=== PATIENT | female | born 1980 | race Caucasian/White ===

== ENCOUNTER → 2019-11-19 15:35 | Outpatient (BNVA) | payer SELFPAY | PROVIDERS: Family Provider Nurse Practitioner Family; Visit Provider Obstetrics & Gynecology | DX: N93.9 Abnormal uterine and vaginal bleeding, unspecified (principal) | CPT/HCPCS: 83001; 84146; 84443; 84702; 85025 ==

== ENCOUNTER → 2019-11-26 11:04 | Outpatient (BNVA) | payer SELFPAY | PROVIDERS: Family Provider Nurse Practitioner Family; Visit Provider Obstetrics & Gynecology | DX: D25.9 Leiomyoma of uterus, unspecified (principal) | CPT/HCPCS: 76830 ==

== ENCOUNTER → 2020-03-06 10:44 | Outpatient (BNVA) | payer OTHER, SELFPAY | PROVIDERS: PCP Nurse Practitioner Family; Visit Provider Obstetrics & Gynecology | DX: Z01.812 Encounter for preprocedural laboratory examination (principal); D25.1 Intramural leiomyoma of uterus; G89.29 Other chronic pain; N93.9 Abnormal uterine and vaginal bleeding, unspecified; R10.2 Pelvic and perineal pain | CPT/HCPCS: 80053; 81001; 84703; 85025; 87635 ==

== ENCOUNTER 2020-03-11 16:55 | Observation (INO) | payer OTHER, SELFPAY ==
[2020-03-06 09:46] VITALS: BMI 20.9
--- NOTE | 2020-03-06 13:18 | ANES.PREANE2 ---
Pre-Anesthetic Assessment Pre-Anesthetic Assessment: Height/Weight: Height 1.6 m Weight 53.524 kg Preop Diagnosis: Chronic pelvic pain, abnormal uterine bleeding, uterine fibroid Proposed Procedure: Operation Date: 03/11/20 08:25 Proposed Procedures p Total Vaginal Hysterectomy 15082 N93.9 R10.2(Not Applicable) - Shaka Betts MD Was Beta Sunny taken within 24 hours: N/A Social: Social History: Tobacco and No alcohol Exam: Pre-Anes Outpt Exam: alert, oriented x 3, clear to auscultation bilaterally and regular rate & rhythm Airway: Submandibular: WNL Cervical ROM: WNL MP: 2 Dentition: Partials History/ROS: No significant history except as noted Anesthetic Plan: ASA status: 2 Anesthesia: General Risk of > 500 ml blood loss (7ml/kg in children): No PFSH Anesthesia PFSH: Family History Other CAD (coronary artery disease) Denies family history of Colon cancer Ovarian cancer Diabetes Clotting disorder Hyperlipidemia Breast cancer Anesthesia complication Hypertension Uterine cancer Thyroid condition Stroke Social History (Updated 03/06/20 @ 07:54 by Melany Perry RN) Smoking and tobacco status: current every day smoker cigarettes Packs smoked per day: 1 Alcohol intake: current Alcohol intake frequency: holidays/special occasions only Alcohol type: beer Data Anesthesia Cardiac Studies: No Data to Display
[2020-03-11] VITALS (15 sets, daily range): BP systolic 92–123; BP diastolic 57–86; PULSE 71–108; RESP 14–20; TEMP 36.3–37.1; O2SAT 96–100
[2020-03-11] MEDS: sodium chloride 0.9% 500 ML IV (11:46)
[2020-03-11] MEDS: scopolamine 1.5 Patch 1 PATCH TRANSDERMA (11:46)
[2020-03-11] MEDS: sodium chloride 0.9% 1,000 ML 30 ML IV (11:47)
[2020-03-11 11:53] LABS: OR HCG Qualitative Urine Negative (Negative)
--- NOTE | 2020-03-11 11:58 | P.ANESUD_ITS ---
Pre-Anesthetic Update Pre-Anesthetic Assessment: Date of Surgery/Procedure: 03/11/20 Preop Nichelle gnosis: Chronic pelvic pain, abnormal uterine bleeding, uterine fibroid Proposed Procedure: Operation Date: 03/11/20 12:55 Proposed Procedures p Total Vaginal Hysterectomy 43164 N93.9 R10.2(Not Applicable) - Shaka Betts MD Any changes to Pre-Anesthetic Assessment?: No Last Intake: Intake Last Liquid Date 03/10/20 Last Liquid Time 23:00 Last Solid Date 03/10/20 Last Solid Time 13:30 Labs Last 48hrs: Laboratory Results - last 48 hr 03/11/20 11:52 Urine HCG, Qual Negative Vitals: Temperature 97.3 F L 03/11/20 11:43 Temperature Source Temporal Artery S can 03/11/20 11:43 Pulse Rate 97 03/11/20 11:43 Respiratory Rate 18 03/11/20 11:43 Blood Pressure 102/86 03/11/20 11:43 Blood Pressure Zonia n 91 03/11/20 11:43 Pulse Oximetry 100 03/11/20 11:43 Oxygen Delivery Me thod 03/11/20 11:43 Exam: Pre-Anes Outpt Exam: alert, oriented x 3, clear to auscultation bilaterally and regular rate & rhythm Cardiac Studies: No Data to Display
--- NOTE | 2020-03-11 14:42 | W.PM.OPSUD ---
Surgery/Procedure H&P Update DATE OF PROCEDURE: March 11, 2020 DATE H&P PERFORMED: 03/06/20 H&P UPDATE INFORMATION: I have reviewed H&P completed within last 30 days, I have examined patient prior to procedure and No changes to prior documentation PREOP DIAGNOSIS: Chronic pelvic pain, abnormal uterine bleeding, uterine fibroid PLANNED PROCEDURE: Operation Date: 03/11/20 12:55 Proposed Procedures p Total Vaginal Hysterectomy 32327 N93.9 R10.2(Not Applicable) - Shaka Betts MD
[2020-03-11] MEDS: ceFOXitin 2,000 MG in sodium chloride 0.9% (plus) 50 ML 100 MG IV (15:52)
--- NOTE | 2020-03-11 17:40 | PM.OP ---
Operative Report Date of procedure: March 11, 2020 Pre-op Diagnosis: Chronic pelvic pain, abnormal uterine bleeding, uterine fibroid Post-op diagnosis: same Procedure Done: Total vaginal hysterectomy Specimens removed/disposition: Uterus Pathology: Uterus Surgeon: Shaka Betts MD Anesthesia: General Estimated blood loss (mL): 25 IV fluids (mL): 1,000 Urine output (mL): 100 Condition: stable Disposition: PACU Brief History: 39-year-old female G3, P3 with a uterus fibroid abnormal uterine bleeding and chronic pelvic pain unresponsive to medical manage. Procedure: After informed consent and risks, benefits, indications and alternatives reviewed with the patient was taken to the operating room. The patient was placed in dorsal lithotomy position prepped, and draped in the usual sterile fashion. The pre-procedure timeout verifying the correct patient, procedure, site and side, could not requirements was performed and acknowledge by the OR team. A Moon catheter was placed. A Bookwalter vaginal retractor was placed into the vagina in usual manner visualize the cervix. Cervix was grasped with a single tooth tenaculum and circumferentially infiltrated with 1% Xylocaine with epinephrine. Then cervix was circumferentially incised with bovie and the bladder was dissected off the pubovesical cervical fascia anteriorly with a sponge stick and Metzenbaum scissors. The anterior peritoneal reflection was identified and the anterior cul-de-sac was entered sharply with Metzenbaum scissors. The same procedure was performed posteriorly and a posterior colpotomy was made through the posterior cul-de-sac space without difficulty and the posterior blade of the Bookwalter vaginal retractor was advanced posteriorly into the cul-de-sac. At this time, the left and right uterosacral ligaments were isolated and ligated with 0 Vicryl. The Enseal device was placed over the uterosacral ligaments on either side and was then used in a serial fashion up through the cardinal ligaments bilaterally cross-clamped, cut, and sealed with the Enseal device. Finally, the uterine arteries were cross-clamped, cut, sealed and ligated with the Enseal device. Hemostasis was assured. The broad ligaments were then serially clamped, sealed and cut with the Enseal device on both sides. Excellent hemostasis was visualized. Both cornua were clamped, sealed and cut with the Enseal device. Then the pedicles were then suture ligated with excellent hemostasis. The uterus was excised and submitted for pathologic evaluation. No other abnormalities were noted in the pelvic cavity. The peritoneum was then closed in a pursestring fashion with 0 Vicryl suture. The vaginal cuff angles were closed with [id number] #0 Vicryl suture on both sides and transfixed with the ipsilateral cardinal and uterosacral ligaments. The patient was given indigo carmine IV. The remainder of the vaginal cuff was closed with #0 Vicryl in a running locked fashion. At this time, instruments were removed from the vagina at hemostasis assured. Then the Moon catheter was removed and cystoscope was inserted. The bladder was filled with sterile water. Complete evaluation of the bladder mucosa was performed noting no lacerations, dimpling, tears, bleeding of the mucosa or muscular layers. Both ureteral orifices were identified. Prompt excretion of blue urine from both ureteral orifices was noted. Cystoscope was withdrawn. Moon catheter was then placed yielding clear blue urine. A vaginal packing with Premarin cream was placed and the patient was taken out of dorsal lithotomy position and awakened from the general anesthesia. The patient tolerated the procedure well and was taken to the PACU recovery room in a stable condition. Sponge, lap, needle and instruments counts were correct x3.
[2020-03-11] MEDS: fentaNYL 50 mcg/mL INJ 2mL IVP ×2 (17:43→17:55)
[2020-03-11] MEDS: ketorolac 30 mg/mL INJ IVP (18:26)
[2020-03-11] MEDS: HYDROmorphone 1 mg/mL INJ 1 mL 1.5 MG IVP (18:27)
[2020-03-11] MEDS: dextrose 5%-lactated ringers 1,000 ML 125 ML IV (20:35)
[2020-03-12] MEDS: ketorolac 30 mg/mL INJ IVP
[2020-03-12 01:33] VITALS: BP 103/66; PULSE 76; RESP 16; O2SAT 99
[2020-03-12 03:06] VITALS: RESP 12
[2020-03-12] MEDS: HYDROmorphone 1 mg/mL INJ 1 mL 1.5 MG IVP ×2 (03:06→10:00)
[2020-03-12 05:24] LABS: Hematocrit 28.1 % (37.0-47.0); Hemoglobin 8.7 g/dL (11.5-15.3); Mean Corpuscular Hemoglobin 26.4 pg (28.0-34.0); Mean Corpuscular Volume 85.4 fL (81-99); Mean Platelet Volume 9.5 fL (7.4-10.4); Platelet Count 344 10^3/cmm (130-400); Red Blood Count 3.29 10^6/uL (4.1-5.3); Red Cell Distribution Width 13.5 % (12.1-15.1); White Blood Count 15.7 10^3/uL (4.0-10.0)
[2020-03-12] MEDS: HYDROcodone-acetaminophen 5-325 mg Tablet PO ×2 (07:48→14:05)
[2020-03-12] MEDS: ibuprofen 800 mg tablet PO ×2 (07:48→16:21)
[2020-03-12] MEDS: docusate sodium 100 mg Capsule PO (09:03)
[2020-03-12 10:00] VITALS: RESP 18; O2SAT 98
[2020-03-12 10:15] VITALS: BP 90/50; PULSE 90; RESP 18; TEMP 36.6; O2SAT 95
--- NOTE | 2020-03-12 17:08 | PM.OBGYDC ---
Discharge Providers GRIZZLYMAN Date of Admission: 03/11/20 16:55 Date of Discharge: 03/12/20 Attending Provider at Admission: Shaka Betts MD Attending Provider at Discharge: Shaka Betts MD Primary Care Provider: Fran Pete Diagnoses at Discharge Discharge Diagnosis (1) Uterine leiomyoma: Status: Acute Qualifiers: Uterine leiomyoma location: intramural Qualified Code(s): D25.1 - Intramural leiomyoma of uterus (2) Abnormal uterine bleeding due to intramural leiomyoma: Status: Acute (3) Chronic pelvic pain in female: Status: Acute Reason for Visit Reason for Visit: abnormal uterine bleeding Hospital Course Hospital Course Mrs. Sahu 39-year-old female with abnormal uterine bleeding, pelvic pain and fibroid uterus unresponsive to medical management, admitted for planned total vaginal hysterectomy. The procedure was performed without complication. Overnight observation uneventful. Ambulating without difficulty. Tolerating diet well. Pain under control with medication. She is afebrile and hemodynamically stable. Physical Exam Narrative: EXAM NARRATIVE: GA: Alert and oriented ?3. HEENT: WNL. Heart: Regular rate and rhythm. Lungs: Clear to auscultation bilaterally. Abdomen: Bowel sounds present, nontender, minimal tenderness. SURGICAL ASSIST: light bleeding. Extremities: No edema, no cyanosis, no calves pain. Urinary Catheter Management^: F: Cath Placed During This Visit: yes, but has since been removed by the nurse Reason for Continuing Indwelling Catheter: Decision to DC Catheter Urinary Catheter Date of Insertion: 03/11/20 Urinary Catheter Time of Insertion: 16:00 Date Urinary Catheter Removed: 03/12/20 Time Urinary Catheter Discontinued: 11:35 Discharge Data Data Completed and Pending: Pending at discharge Category Date Time Status Pathology: Surgic al [PTH] Routine Pth 03/11/20 17:14 Received Labs from last 24 hours 03/12/20 05:15 WBC 15.7 H RBC 3.29 L Hgb 8.7 L Hct 28.1 L MCV 85.4 MCH 26.4 L MCHC 31.0 RDW 13.5 Plt Count 344 MPV 9.5 Vitals: Last Vital Signs Temp 97.9 F 03/12/20 10:15 Pulse 90 03/12/20 10:15 Resp 18 03/12/20 10:15 BP 90/50 03/12/20 10:15 Pulse Ox 95 03/12/20 10:15 Discharge Plan Discharge Patient Disposition: Home Condition: Stable Prescriptions: New hydrocodone-acetaminophen [[place]] 5-325 mg tablet 1 tab PO Q4H PRN (Reason: pain) Qty: 30 RF: 0 acetaminophen 325 mg capsule 325 mg PO Q4H PRN (Reason: fever or pain) Qty: 60 RF: 0 ibuprofen 800 mg tablet 800 mg PO TID PRN (Reason: pain) Qty: 60 RF: 0 Continued No Known Home Medications RF: 0 Discharge Orders: Discharge Order (Routine); Ordered 03/12/20 Ordered By: Shaka Betts Referrals: Shaka Betts MD [Physician] - 03/20/20 12:45 pm (* Your 2 week follow up appointment is with Dr. Betts on 03/20/20 at 12:45pm * Your 6 week follow up is with Dr. Betts on 04/21/20 at 12:45pm. ) Discharge Diet: Usual diet Discharge Activity: Increase activity as tolerated Patient Instructions: Vaginal Hysterectomy (DC), OB Abdominal Surgery - [facility] [place] [facility], OB Discharge Report, OB Food/Drug Interaction Guide Activity Restrictions/Additional Instructions: 1. Please call [facility] on next working day to make your post-operative appointment in 2 weeks. 2. Please stay home until you come back to the clinic on first post-operative check up. 3. Please follow instructions on your medications CAREFULLY. 4. If you have abdominal incision, do not cover it unless dressing is necessary because of drainage. OK to shower, but avoid bath. Leave steri-strips until they fall off. If they are still on one week after surgery, you may remove them. 5. If you had vaginal surgery, your doctor may instruct you to take SITZ bath. 6. Yellow, blood tinged odorous vaginal discharge is usually normal after hysterectomy or vaginal surgeries. 7. No sexual intercourse, tampons, or douches until you are completely released from the post-operative care. 8. Avoid constipation by eating right and maybe using some Metamucil or Milk of Magnesia. 9. All prescription refills are given during the working hours. Please do no wait till it runs out. Call the clinic at [phone] before your medication runs out. The clinic will get in touch with your doctor to prescribe medications if necessary. 10. Please remain within 40 mile radius from our hospital because emergencies do happen now and then during the post-operative period. 11. If you have stairs at home, take one step at a time slowly and minimize the number of trips. It helps to stay in one floor for the next few days. No lifting except what you can lift by one hand until you are released from the post-operative care. 12. Driving is discouraged until you are well healed. It may be 3-4 weeks before you feel strong enough to drive. You should be able to turn and look through the rear window without pain and you should be able to push the brake pedal very hard without pain before you drive. No fast rules, but SAFETY should be your primary concern. DO NOT drive if you are on sedating medications such as narcotics. 13. Call the clinic (during working hours) to make urgent appointment or go to the Emergency room, if any of the following occurs: i. Vaginal bleeding becomes heavy, more than a period. ii. Incision becomes red and sore, or drains pus. iii. Your temperature is over 100.4 or you have chill. iv. IV site becomes red and swollen (a little ``knot?? is usually OK) v. Persistent nausea and vomiting vi. Persistent constipation or diarrhea vii. Rash or allergic reaction to medications. 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
[2020-03-12 17:32] VITALS: BP 96/63; PULSE 80; RESP 18; TEMP 36.8; O2SAT 99
--- NOTE | 2020-03-13 14:45 | PC.RESP ---
Smoking Cessation information sent to patient.
== END 2020-03-12 17:35 | disposition home or self-care (01) ==
LOC: OBGYN 16:58
PROVIDERS: Anesthesiology; Admitting Provider Obstetrics & Gynecology; PCP Nurse Practitioner Family; Visit Provider Obstetrics & Gynecology
PROC: (CPT 58290; principal; 2020-03-11 12:50)
DX: D25.1 Intramural leiomyoma of uterus (principal); N93.9 Abnormal uterine and vaginal bleeding, unspecified; R10.2 Pelvic and perineal pain; G89.29 Other chronic pain; F17.210 Nicotine dependence, cigarettes, uncomplicated
CPT/HCPCS: 58290; 12345; 36415; 81025; 84703; 85027; 88307; 96365; G0378; J0694; J1100; J1170; J1885; J2405; J2704; J3010; J3490; J7030; J7040